=== PATIENT | female | born 1955 | race Caucasian/White ===

== ENCOUNTER 2017-05-12 23:13 | Emergency (ER) | payer SELFPAY ==
[2017-05-12] MEDS ORDERED: TDAP ADULT 0.5 ML INJ (BOOSTRIX) IM ONE (23:24)
[2017-05-12 23:41] VITALS: PULSE 66
[2017-05-13] MEDS ORDERED: CEPHALEXIN 500MG PREPACK#4 BTL TAKEHOME ONE (00:33)
[2017-05-13] MEDS ORDERED: IBUPROFEN 600 MG TAB PO ONE ×3 (00:33→00:52)
--- NOTE | 2017-05-13 00:33 | EDPHY ---
H & P Stated Complaint: Fall - Personal History Current Tetanus/Diphtheria Vaccine: Unsure Current Tetanus Diphtheria and Acellular Pertussis (TDAP): Unsure - Medical/Surgical History Hx Asthma: No Hx Chronic Respiratory Disease: No Hx Diabetes: No Hx Cardiac Disease: No Hx Renal Disease: No Hx Cirrhosis: No Hx Alcoholism: No Hx HIV/AIDS: No Hx Splenectomy or Spleen Trauma: No Other PMH: GERD - Social History Smoking Status: Unknown if ever smoked HPI/ROS: Chief complaint: Fall with head injury History of present illness: This is a 62-year-old female who presents to the emergency department by EMS after sustaining a fall injuring her head. Patient was walking on the sidewalk when she tripped over an uneven surface falling forward and striking her face. She has cut her nose and it is swollen, she is concerned it is broken. She has also cut her lip and has broken teeth. She scraped her knees but they otherwise feel well. She does not believe she lost consciousness. She denies headache, back pain, chest pain, abdominal pain, no report of neurologic symptoms such as paresthesias, weakness or paralysis or bowel or bladder dysfunction. She is unsure of her last tetanus shot. She is visiting from [place] and is scheduled to return home this upcoming Sunday, 3 days from now. Review of systems: A 10 point review of systems was obtained and other than described above was negative (Kyle Tiwari) - Physical Exam Exam: General Appearance: Alert to verbal stimuli, nontoxic Eyes: PERRLA Mouth: No hemotympanum, no Marshall sign, no raccoon eyes. Normal bite. Superior central incisor are fracture Respiratory: Lungs clear to auscultation bilaterally Cardiac: Regular rate and rhythm. Gastrointestinal: Bowel sounds normal. Abdomen is soft, nondistended, nontender. Neurological: Patient sitting in bed quietly with eyes closed, she does respond to verbal stimuli. Cranial nerves 2-12 are grossly intact. Strength and sensation intact and symmetrical. Skin: Abrasions to the bridge of the nose and the knees. There is a small laceration to the mucosal surface of the upper lip. Musculoskeletal: Diffuse tenderness to the face. The head is nontender. The spine is nontender without crepitus, bony deformity or step-off. Chest wall intact palpation. Patient moving all extremities without difficulty. She is ambulating well. (Kyle Tiwari) Constitutional: Initial Vital Signs Temperature (C) 36.4 C 05/12/17 23:40 Heart Rate 66 05/12/17 23:40 Respiratory Rate 16 05/12/17 23:40 Blood Pressure 133/82 H 05/12/17 23:40 O2 Sat (%) 93 05/12/17 23:40 O2 Delivery Mode Room Air Allergies/Adverse Reactions: No Known Allergies Allergy (Unverified 05/12/17 23:26) Home Medications: Medication Instructions Recorded Amlodipine Besylate 05/12/17 PRILOSEC 05/12/17 Cephalexin [Keflex] 500 mg PO TID 4 Days cap 05/13/17 Medical Decision Making - Diagnostics Imaging: Discussed imaging studies w/ fisher scallop Radiologist - Diagnostics Imaging Results: Imaging Impressions Cervical Spine CT 05/12/17 23:24 Impression: 1. No significant intracranial abnormality seen. 2. No acute osseous abnormality seen about the cervical spine. 3. Facet hypertrophy upper cervical spine with mild degenerative disk disease mid to lower cervical spine. 4. Nasal bone fracture with slight deviation of the left nasal bone anterior margin laterally. No additional facial fractures seen. If symptoms worsen, additional imaging may be necessary. Findings discussed with GARY Roberts at 0:08 hour, 05/13/2017. Face CT 05/12/17 23:24 Impression: 1. No significant intracranial abnormality seen. 2. No acute osseous abnormality seen about the cervical spine. 3. Facet hypertrophy upper cervical spine with mild degenerative disk disease mid to lower cervical spine. 4. Nasal bone fracture with slight deviation of the left nasal bone anterior margin laterally. No additional facial fractures seen. If symptoms worsen, additional imaging may be necessary. Findings discussed with GARY Roberts at 0:08 hour, 05/13/2017. Head CT 05/12/17 23:24 Impression: 1. No significant intracranial abnormality seen. 2. No acute osseous abnormality seen about the cervical spine. 3. Facet hypertrophy upper cervical spine with mild degenerative disk disease mid to lower cervical spine. 4. Nasal bone fracture with slight deviation of the left nasal bone anterior margin laterally. No additional facial fractures seen. If symptoms worsen, additional imaging may be necessary. Findings discussed with GARY Roberts at 0:08 hour, 05/13/2017. Procedures: Procedure: Laceration repair. Verbal consent was obtained from the patient. The 0.5 cm laceration on the central superior lip on the mucosal surface was anesthetized in the usual fashion. The wound was irrigated, draped and explored to its base with a gloved finger. There were no deep structures involved. No tendon injury was identified. The wound was repaired with 5-0 rapidly dissolving Vicryl, 2 simple interrupted sutures. The wound repair was simple. The procedure was performed by myself. (Kyle Tiwari) ED Course/Re-evaluation: Patient seen under the supervision of my secondary supervising physician Dr. Renuka Jaffe. Patient brought to the emergency department for a head injury after a mechanical fall. No report of preceding events to suggest syncope, seizure etc. She primarily appears to have injured her head. Imaging studies of the face, head and neck are negative. Wounds have been cleaned. Wound on lip has been suture. Tetanus is updated. Given oral mucosal injury she is started on antibiotics. History and physical exam I do not appreciate evidence of significant trauma to other parts of the body. She will be discharged home. Home care is discussed. Return precautions given. The patient voiced understanding and agreed with plan. (Kyle Tiwari) Differential Diagnosis: Included but not limited to soft tissue injury, bony fracture, intracranial injury, spinal cord injury (Kyle Tiwari) Other Provider: PHYSICIAN DOCUMENTATION: The patient was evaluated and managed by the Physician Employment Programs Analyst. My co- signature indicates that I have reviewed this chart and I agree with the findings and plan of care as documented. I am the secondary supervising physician. (Renuka Jaffe) - Data Points Medications Given: Discontinued Medications Cephalexin (Keflex 500 Mg Prepack#4) 1 btl TAKEHOME EDNOW ONE PRN Reason: Protocol Stop: 05/13/17 00:34 Last Admin: 05/13/17 00:39 Dose: 1 btl Diphtheria/Tetanus/Acell Pertussis (Boostrix) 0.5 ml IM .ONCE ONE Stop: 05/12/17 23:25 Last Admin: 05/12/17 23:47 Dose: 0.5 ml Ibuprofen (Motrin) 600 mg PO EDNOW ONE Stop: 05/13/17 00:34 Last Admin: 05/13/17 00:38 Dose: 600 mg Ibuprofen (Motrin) 600 mg PO EDNOW ONE Stop: 05/13/17 00:53 Last Admin: 05/13/17 00:56 Dose: 600 mg Departure - Departure Disposition: Home, Routine, Self-Care Clinical Impression: Head injury Qualifiers: Encounter type: initial encounter Qualified Code(s): S09.90XA - Unspecified injury of head, initial encounter Broken nose Qualifiers: Encounter type: initial encounter Fracture type: closed Qualified Code(s): S02.2XXA - Fracture of nasal bones, initial encounter for closed fracture Face lacerations Qualifiers: Encounter type: initial encounter Qualified Code(s): S01.81XA - Laceration without foreign body of other part of head, initial encounter Condition: Good Instructions: Care For Your Stitches (ED), Nasal Fracture (ED), Laceration (ED) , Head Injury (ED), Acute Wounds (ED) Additional Instructions: Follow-up with her primary care doctor when you return home Ice the injury, 20 minutes on, 3 times daily for the next 3 days Use ibuprofen 600 mg 3 times a day next 2-3 days for pain control Take antibiotics as prescribed If symptoms worsen or new symptoms develop return to the emergency room for recheck Referrals: DR HERO [Other] - As per Instructions Prescriptions: Cephalexin [Keflex] 500 mg PO TID 4 Days cap
[2017-05-13 01:03] VITALS: BP 152/87; RESP 18; TEMP 97.7; O2SAT 94
== END 2017-05-13 01:03 | disposition home or self-care (01) ==
PROC: 0CQ0XZZ Repair Upper Lip, External Approach (ICD-10-PCS; principal; 2017-05-12)
DX: S09.90XA Unspecified injury of head, initial encounter (principal); S02.2XXA Fracture of nasal bones, initial encounter for closed fracture; S01.81XA Laceration without foreign body of other part of head, initial encounter; Z23 Encounter for immunization; W01.198A Fall on same level from slipping, tripping and stumbling with subsequent striking against other object, initial encounter; Y92.480 Sidewalk as the place of occurrence of the external cause; Y99.8 Other external cause status; Y93.01 Activity, walking, marching and hiking